=== PATIENT | female | born 1955 | race Two or more races ===

== ENCOUNTER 2018-08-26 11:11 | Outpatient (CLI) | payer OTHER ==
[~2018-08-26] VITALS: Ht 170.2 cm; Wt 83.9 kg
[~2018-08-26 11:11] MED LIST: CELEBREX100 MG PO; LEVAQUIN750 MG PO; RESPTHERAMACH IH; SKELAXIN800 MG PO; TUSSIONEX PENNKI5 ML PO
== END 2018-08-26 11:25 | disposition home or self-care (01) ==
LOC: OFIC 805 11:11
DX: R42 Dizziness and giddiness (principal); R49.0 Dysphonia; K20.8 Other esophagitis

== ENCOUNTER 2019-01-14 10:10 | Outpatient (CLI) | payer OTHER ==
[~2019-01-14] VITALS: Ht 152.4 cm; Wt 83.9 kg
== END 2019-01-14 10:25 | disposition home or self-care (01) ==
LOC: OFIC 805 10:10
DX: K21.0 Gastro-esophageal reflux disease with esophagitis (principal); R07.0 Pain in throat; M54.2 Cervicalgia; H92.01 Otalgia, right ear